=== PATIENT | female | born 1940 | race Caucasian/White ===

== ENCOUNTER 2018-03-22 16:17 | Inpatient (IN) | payer OTHER ==
[~2018-03-22] VITALS: Ht 157.5 cm; Wt 64.4 kg
[2018-04-04] MEDS ORDERED: LOSARTAN-HCTZ1 EAC1 PO (09:43)
[2018-04-04] MEDS ORDERED: TOPROL XL100 M1 PO (09:43)
[2018-04-04] MEDS ORDERED: NITROSTAT0.4 MG SL (09:43)
[2018-04-04] MEDS ORDERED: LIPITOR80 MG PO (09:44)
[2018-04-04] MEDS ORDERED: PLAVIX75 MG PO (09:44)
[2018-04-04] MEDS ORDERED: INDUR PO (09:45)
[2018-04-04] MEDS ORDERED: NORVASC5 MG PO (09:45)
[2018-04-04] MEDS ORDERED: VITAMIN D310000 UNIT PO (09:46)
== END 2018-04-12 17:04 | disposition home or self-care (01) | DRG 349 ==
LOC: SURG 04-11 05:00 → O/R 04-11 09:25 → SURG 04-11 13:58
PROVIDERS: Colon & Rectal Surgery
PROC: 0DQR0ZZ Repair Anal Sphincter, Open Approach (ICD-10-PCS; 2018-04-11)
PROC: 0DJD8ZZ Inspection of Lower Intestinal Tract, Via Natural or Artificial Opening Endoscopic (ICD-10-PCS; 2018-04-11)
PROC: 4A12X4Z Monitoring of Cardiac Electrical Activity, External Approach (ICD-10-PCS; 2018-04-11)
PROC: 0DBP7ZZ Excision of Rectum, Via Natural or Artificial Opening (ICD-10-PCS; principal; 2018-04-11 05:00)
DX: K62.3 Rectal prolapse (principal); N81.6 Rectocele; R15.9 Full incontinence of feces; I11.9 Hypertensive heart disease without heart failure; I65.21 Occlusion and stenosis of right carotid artery; I34.0 Nonrheumatic mitral (valve) insufficiency; K91.0 Vomiting following gastrointestinal surgery; I49.5 Sick sinus syndrome